=== PATIENT | male | born 1955 | race Caucasian/White ===

== ENCOUNTER → 2019-03-28 | Outpatient (CLI) | payer MEDICARE, BC | LOC: COL.RAD 09:34 | DX: Z13.6 Encounter for screening for cardiovascular disorders (principal); Z87.891 Personal history of nicotine dependence ==

== ENCOUNTER → 2020-05-26 | Outpatient (CLI) | payer MEDICARE, BC ==
[~2020-05-26] MED LIST: CRESTOR20 MG PO; CRESTOR5 MG PO; FERRO-TIME325 MG PO; LANTUS100 U/ML SQ; PRINIVIL2.5 MG PO; PRINZIDE 25 MG-1 TAB PO; PROTONIX 40MG T40 MG PO; TOPROL XL 25MG25 MG PO; TOPROL XL200 MG PO; TRULICITY3 MG/0.5 M SQ; [UNRECOGNIZED DRUG - REMARK]
== END ==
LOC: COL.RAD 12:58
DX: N18.31 Chronic kidney disease, stage 3a (principal)

== ENCOUNTER 2020-10-20 13:17 | Observation (INO) | payer MEDICARE, BC ==
[~2020-10-20] VITALS: Ht 177.8 cm; Wt 104.5 kg
[2020-10-20 15:06] LABS: HEMATOCRIT 44.4 % (42.0-52.0); HEMOGLOBIN 15.2 g/dl (13.5-18.0); MEAN CELL VOLUME 91 fl (80.0-100.0); MEAN CORPUSCULAR HEMOGLOBIN 31 pg (27.0-31.0); MEAN CORPUSCULAR HGB CONC 34 g/dl (33.0-37.0); MEAN PLATELET VOLUME 10.9 fl (7.4-10.4); PLATELET COUNT 245 K/mm3 (130-400); RED BLOOD COUNT 4.86 M/mm3 (4.20-5.60); REDCELL DISTRIBUTION WIDTH-CV 13.4 % (11.5-14.5)
[2020-10-20 15:18] LABS: BILIRUBIN,TOTAL 0.7 mg/dL (0.0-1.0); CALCIUM 9.3 mg/dL (8.4-10.2); CREATININE, serum 1.68 (0.66-1.25); INR 1.2 (0.8-3.0); POTASSIUM 3.5 mmol/L (3.4-5.0); PROTHROMBIN TIME 13.3 SECONDS (9.7-12.8); TOTAL PROTEIN 6.8 gm/dL (6.4-8.2)
[2020-10-20 16:21] LABS: BAND 1 % (0-10); LYMPHOCYTE 11 % (20.0-51.0); NEUTROPHILS 85 % (42.0-75.2)
[2020-10-20 16:23] LABS: PLATELET ESTIMATE NORMAL (NORMAL)
[2020-10-20 18:34] LABS: HEMATOCRIT 37.7 % (42.0-52.0); MEAN CELL VOLUME 93 fl (80.0-100.0); MEAN CORPUSCULAR HEMOGLOBIN 32 pg (27.0-31.0); MEAN CORPUSCULAR HGB CONC 34 g/dl (33.0-37.0); MEAN PLATELET VOLUME 10.7 fl (7.4-10.4); PLATELET COUNT 210 K/mm3 (130-400); RED BLOOD COUNT 4.06 M/mm3 (4.20-5.60); REDCELL DISTRIBUTION WIDTH-CV 13.6 % (11.5-14.5)
[2020-10-20] MEDS ORDERED: TOPROL XL 25MG25 MG PO (18:34)
[2020-10-20] MEDS ORDERED: PRINIVIL2.5 MG PO (18:34)
[2020-10-20 18:36] LABS: HEMOGLOBIN 12.9 g/dl (13.5-18.0)
[2020-10-20] MEDS ORDERED: CRESTOR5 MG PO (18:36)
[2020-10-20] MEDS ORDERED: [UNRECOGNIZED DRUG - REMARK] (18:37)
[2020-10-20 19:16] LABS: LYMPHOCYTE 18 % (20.0-51.0); NEUTROPHILS 73 % (42.0-75.2)
[2020-10-20 19:17] LABS: PLATELET ESTIMATE NORMAL (NORMAL)
[2020-10-20] MEDS ORDERED: PRINZIDE 25 MG-1 TAB PO (19:28)
[2020-10-20] MEDS ORDERED: LANTUS100 U/ML SQ (19:28)
[2020-10-20] MEDS ORDERED: TRULICITY3 MG/0.5 M SQ (19:28)
[2020-10-20] MEDS ORDERED: TOPROL XL200 MG PO (19:29)
[2020-10-20] MEDS ORDERED: CRESTOR20 MG PO (19:30)
--- NOTE | 2020-10-20 21:28 | NUR ---
Arrived to room, awake, alert, oriented x 4, talkative, denies pain, ambulates with steady gait, NPO status maintained, updated on plan of care
[2020-10-20 23:15] LABS: HEMATOCRIT 37.2 % (42.0-52.0); HEMOGLOBIN 12.8 g/dl (13.5-18.0)
[2020-10-21] VITALS (12 sets, daily range): BP systolic 127–174; BP diastolic 68–83; PULSE 71–94; TEMP 97.8–98.8
--- NOTE | 2020-10-21 06:26 | NUR ---
Awake, alert, oriented x 3, tolerated bolus of NS well, no c/o shob, B/P increased, Mag and K replacment completed, redraw of labs this am, denies pain, no s/s of hypo/hyper glycemia, telemetry d/c, VS stable, plan for EGD this am.
[2020-10-21 07:20] LABS: HEMOGLOBIN 11.8 g/dl (13.5-18.0); MEAN CELL VOLUME 91 fl (80.0-100.0); MEAN CORPUSCULAR HEMOGLOBIN 31 pg (27.0-31.0); MEAN CORPUSCULAR HGB CONC 34 g/dl (33.0-37.0); MEAN PLATELET VOLUME 11.2 fl (7.4-10.4); PLATELET COUNT 199 K/mm3 (130-400); RED BLOOD COUNT 3.78 M/mm3 (4.20-5.60); REDCELL DISTRIBUTION WIDTH-CV 13.7 % (11.5-14.5)
[2020-10-21 07:22] LABS: CALCIUM 8.2 mg/dL (8.4-10.2); CREATININE, serum 1.49 (0.66-1.25); MAGNESIUM 1.9 mg/dL (1.6-2.3); POTASSIUM 3.3 mmol/L (3.4-5.0)
[2020-10-21 07:39] LABS: HEMATOCRIT 34.4 % (42.0-52.0)
[2020-10-21 08:33] LABS: BAND 2 % (0-10); LYMPHOCYTE 9 % (20.0-51.0); METAMYELOCYTE 1 % (0-0); NEUTROPHILS 78 % (42.0-75.2); PLATELET ESTIMATE NORMAL (NORMAL)
--- NOTE | 2020-10-21 09:30 | NUR ---
Patient alert and oriented, answers questions appropriately. See assessment. Abdomen soft, non tender, non distended. Bowel sounds active x4 quads. +Flatus. +Bowel movement. No c/o coffee grounds or visible blood in stool. EGD scheduled for today. No c/o at this time.
--- NOTE | 2020-10-21 11:48 | NUR ---
fabric worker fitter met with patient to discuss discharge plan. Patient lives at home alone in [place]. Patient reports he is fully independent with his activities of daily living and does not use any medical equipment to assist with mobility. PCP is Dr. Whitman and uses [facility] for perscriptions. Patient does not have a DPOA-HC established and would like to talk with his son before filling out the form but would like a copy of the form. Social work provided. Patient being downgraded to OBS. fabric worker fitter presented Jorge form to the patient, educated him on the contents and witnessed him sign it. Patient provided with original and copy placed in the chart. *Discharge plan: Home*
--- NOTE | 2020-10-21 12:35 | NUR ---
Patient to Endo with surgery staff at 1235.
--- NOTE | 2020-10-21 13:33 | NUR ---
Received report at 0630 from Danica MASSEY. Patient's vital signs stable and within normal limits. Patient NPO status. No complaint of N/V. No emesis. Assisted with oral hygiene and ambulation. Patient had right AC IV and left AC IV when I arrived and on arrival to endoscopy procedure. Right and left IV removed before procedure. Left arm IV placed distal to previous IV. Patient tolerated procedure well. Patient back on surgical floor at 1325. Vitals stable at this time. Patient is resting comfortably in bed with call light in reach.
--- NOTE | 2020-10-21 14:08 | NUR ---
Criselda returned from [facility] at 1340.
[2020-10-21] MEDS ORDERED: PROTONIX 40MG T40 MG PO (14:56)
[2020-10-21] MEDS ORDERED: FERRO-TIME325 MG PO (14:57)
--- NOTE | 2020-10-21 16:47 | NUR ---
Discharge instructions reviewed with patient, verbalized understanding. Discharged via wheelchair to auto/home with son at 1620.
== END 2020-10-21 16:20 | disposition home or self-care (01) ==
LOC: COL.ER 13:17 → SURG 18:50
PROVIDERS: Family Medicine; Nurse Practitioner Family; Student in an Organized Health Care Education/Training Program; ADMIT Internal Medicine
DX: K25.4 Chronic or unspecified gastric ulcer with hemorrhage (principal); K92.0 Hematemesis; R93.3 Abnormal findings on diagnostic imaging of other parts of digestive tract; K20.80 Other esophagitis without bleeding; K22.6 Gastro-esophageal laceration-hemorrhage syndrome; K29.80 Duodenitis without bleeding; D62 Acute posthemorrhagic anemia; R65.10 Systemic inflammatory response syndrome (SIRS) of non-infectious origin without acute organ dysfunction; E87.2 Acidosis; J96.01 Acute respiratory failure with hypoxia; J44.9 Chronic obstructive pulmonary disease, unspecified; E78.5 Hyperlipidemia, unspecified; N18.30 Chronic kidney disease, stage 3 unspecified; N17.9 Acute kidney failure, unspecified; I13.10 Hypertensive heart and chronic kidney disease without heart failure, with stage 1 through stage 4 chronic kidney disease, or unspecified chronic kidney disease; I95.9 Hypotension, unspecified; E87.6 Hypokalemia; E11.22 Type 2 diabetes mellitus with diabetic chronic kidney disease; F12.20 Cannabis dependence, uncomplicated; F17.210 Nicotine dependence, cigarettes, uncomplicated; Z79.4 Long term (current) use of insulin; Z79.899 Other long term (current) drug therapy; Z20.822 Contact with and (suspected) exposure to COVID-19
CPT/HCPCS: 99223-AI; 99239; C9113; G0378; J2704; J3475; J3480; J7030; Q9967

== ENCOUNTER → 2021-04-12 | Outpatient (CLI) | payer MEDICARE, BC | LOC: COL.RAD 10:03 | DX: Z12.2 Encounter for screening for malignant neoplasm of respiratory organs (principal); R91.8 Other nonspecific abnormal finding of lung field; Z87.891 Personal history of nicotine dependence ==

== ENCOUNTER → 2022-04-24 | Outpatient (CLI) | payer MEDICARE, BC ==
[~2022-04-24] MED LIST changes: +NUVIGIL50 MG PO; +PROVENTIL0.09 MG/A1 IH; +XIGDUO10/1000 PO
== END ==
LOC: COL.RAD 14:03
DX: Z12.2 Encounter for screening for malignant neoplasm of respiratory organs (principal); Z87.891 Personal history of nicotine dependence

== ENCOUNTER → 2022-06-09 | Outpatient (CLI) | payer MEDICARE, BC | LOC: WSPT 14:05 | DX: M48.061 Spinal stenosis, lumbar region without neurogenic claudication (principal) ==

== ENCOUNTER 2022-06-15 13:30 | Outpatient (RCR) | payer MEDICARE, BC | END 2022-06-18 | disposition home or self-care (01) | LOC: WSPT | DX: M48.061 Spinal stenosis, lumbar region without neurogenic claudication (principal) ==